=== PATIENT | female | born 1930 ===

== ENCOUNTER 2016-07-15 16:56 | Emergency (ER) | payer MEDICARE ==
[2016-07-15 17:24] VITALS: BP 123/49; PULSE 112; RESP 19; TEMP 98.7; O2SAT 98
[2016-07-15] MEDS ORDERED: Iohexol 240 (50 ml) PO ONE ×2 (17:54→19:40)
--- NOTE | 2016-07-15 17:58 | ED PDOC ---
HPI: Abdomen Time Seen by Provider: 07/15/16 17:55 Chief Complaint (Nursing): Abdominal Pain Chief Complaint (Provider): abdominal pain History Per: Patient (85 y/o female here for evaluation of back pain/abdominal pain since extensive painting of stairs 3 days ago. Patient states she notes lower back pain improving temporarily with advil but has had continued persistent right lower quadrant pain. Denies any fevers/chills. Denies any dysuria/urinary frequency/diarrhea. Has h/o bladder prolapse surgery 2007. Has h/o hysterectomy at same time. ), Other (PMD DR. briseno) Past Medical History Reviewed: Historical Data, Nursing Documentation, Vital Signs Vital Signs: Last Vital Signs Temp 98.7 F 07/15/16 17:16 Pulse 112 H 07/15/16 17:16 Resp 19 07/15/16 17:16 BP 123/49 L 07/15/16 17:16 Pulse Ox 98 07/15/16 19:57 - Medical History PMH: Arthritis, HTN, Parkinson's Disease - Surgical History Surgical History: No Surg Hx - Family History Family History: States: No Known Family Hx - Home Medications Home Medications: Ambulatory Orders Medication Instructions Recorded Amoxicillin 875 mg PO BID #20 tab 03/17/14 - Allergies Allergies/Adverse Reactions: Allergies Allergy/AdvReac Type Severity Reaction Status Date / Time azithromycin Allergy Mild RASH Verified 07/15/16 17:32 Review of Systems ROS Statement: Except As Marked, All Systems Reviewed And Found Negative Physical Exam - Reviewed Nursing Documentation Reviewed: Yes Vital Signs Reviewed: Yes - Physical Exam Appears: Positive for: Well, Non-toxic, No Acute Distress Head Exam: Positive for: ATRAUMATIC, NORMAL INSPECTION, NORMOCEPHALIC Skin: Positive for: Normal Color, Warm, DRY Eye Exam: Positive for: EOMI, Normal appearance, PERRL ENT: Positive for: Normal ENT Inspection Neck: Positive for: Normal, Painless ROM Cardiovascular/Chest: Positive for: Regular Rate, Rhythm Respiratory: Positive for: CNT, Normal Breath Sounds Gastrointestinal/Abdominal: Positive for: Normal Exam, Bowel Sounds, Soft, Tenderness (right lower quadrant tenderness) Back: Positive for: Normal Inspection Extremity: Positive for: Normal ROM Neurologic/Psych: Positive for: Alert, Oriented - Laboratory Results Result Diagrams: 07/15/16 18:16 07/15/16 18:16 - ECG O2 Sat by Pulse Oximetry: 98 - Progress ED Course And Treament: vALIUM 2.5 MG X 1 DOSE PATIENT DOES NOT WANT MORPHINE AT THIS TIME. XRY OF LSPINE: ? DJD NOTED LOWER LUMBAR REGION. NO OBVIOUS FX CT ABDOMEN/PELVIS: PENDING Disposition - Clinical Impression Clinical Impression: Abdominal pain - Patient ED Disposition Is Patient to be Admitted: Transfer of Care - Disposition Disposition: Transfer of Care Disposition Time: 19:42 Condition: FAIR Patient Signed Over To: Walter Burden Handoff Comments: CT ABD/PELVIS AND RE-EVALUATION
[2016-07-15 18:20] LABS: BASO % 0.4 % (0.0-2.0); EOS # 0.1 K/uL (0.0-0.7); EOS % 1.4 % (0.0-4.0); HEMATOCRIT 37.6 % (34.0-47.0); LYMPH # 1.3 K/uL (1.0-4.3); LYMPH % 19.1 % (20.0-40.0); MEAN CELL VOLUME 91.7 fl (81.0-99.0); MEAN CORPUSCULAR HEMOGLOBIN 29.9 pg (27.0-31.0); MEAN CORPUSCULAR HGB CONC 32.6 g/dL (33.0-37.0); MEAN PLATELET VOLUME 8.9 fl (7.2-11.7); MONO # 0.7 K/uL (0.0-0.8); MONO % 10.5 % (0.0-10.0); NEUT # 4.6 K/uL (1.8-7.0); NEUT % 68.6 % (50.0-75.0); RED CELL DISTRIBUTION WIDTH 14.2 % (11.5-14.5); WHITE BLOOD COUNT 6.6 K/uL (4.8-10.8)
[2016-07-15 18:22] LABS: RBC URINE 3 /hpf (0-3); URINE BACTERIA RARE (<OCC); URINE BILIRUBIN NEGATIVE (NEGATIVE); URINE BLOOD NEGATIVE (NEGATIVE); URINE COLOR YELLOW (YELLOW); URINE GLUCOSE (UA) NEG (Normal); URINE KETONE NEGATIVE (NEGATIVE); URINE LEUKOCYTE ESTERASE NEG Leu/uL (Negative); URINE PROTEIN NEGATIVE (NEGATIVE); URINE UROBILINOGEN 0.2-1.0 mg/dL (0.2-1.0); WBC URINE 2 /hpf (0-5)
[2016-07-15 18:32] LABS: ALB/GLOB RATIO 1.5 (1.0-2.1); ALKALINE PHOSPHATASE 110 U/L (38-126); ALT/SGPT 33 U/L (9-52); AST/SGOT 23 U/L (14-36); BILIRUBIN,TOTAL 0.8 mg/dl (0.2-1.3); BLOOD UREA NITROGEN 12 mg/dl (7-17); CALCIUM 9.8 mg/dL (8.4-10.2); CARBON DIOXIDE 28 mmol/L (22-30); CHLORIDE 101 mmol/L (98-107); GFR AFRICAN-AMERICAN > 60; GLUCOSE,RANDOM 128 mg/dL (65-105); LIPASE 120 U/L (23-300); POTASSIUM 4.5 MMOL/L (3.6-5.0); SODIUM 141 mmol/l (132-148); TOTAL PROTEIN 7.8 G/DL (6.3-8.2)
[2016-07-15] MEDS ORDERED: Sodium Chloride 0.9% 500 ML IV STA (19:42)
[2016-07-15] MEDS ORDERED: Sodium Chloride 0.9% 50 ML IV ONE (20:45)
[2016-07-15] MEDS ORDERED: Iohexol 300 100 ML IJ ONE (20:45)
--- NOTE | 2016-07-15 21:20 | ED PDOC ---
- Laboratory Results Result Diagrams: 07/15/16 18:16 07/15/16 18:16 - ECG O2 Sat by Pulse Oximetry: 98 - Progress ED Course And Treament: Signed out to me pending CT results. On initial evaluation, pt. reports pain in R side of lower back has worsened and is now requesting pain meds. Abd soft and non-tender. No CVA tenderness. Morphine 2mg IV, zofran 4mg IV given. CT abd/pelvis: IMPRESSION: 1. Diverticulosis without definite CT evidence of diverticulitis. 2. Kidney lesion, indeterminate. Recommend nonemergent ultrasound or MRI. 3. Cholelithiasis Pt. and son informed of kidney lesion and instructed to f/u with PMD for US or MRI. Pt. ambulating in ED with steady unassisted gait. Reports good relief of pain. Case d/w Dr. Solomon prior to discharge who agrees with disposition. Disposition - Clinical Impression Clinical Impression: Abdominal pain, Back pain - POA Present On Arrival: None - Disposition Disposition: Routine/Home Disposition Time: 22:42 Condition: IMPROVED Prescriptions: Tramadol HCl [Ultram] 50 mg PO BID PRN #10 tablet PRN Reason: Other Instructions: Musculoskeletal Pain (ED) Print Language: VENEZUELAN
--- NOTE | 2016-07-15 21:48 | CT ---
EXAM: CT Abdomen and Pelvis With Intravenous Contrast CLINICAL HISTORY: 85 years old, female; Pain; Abdominal pain; Generalized; Additional info: Rlq abd pain and evaluate lumbar spine for FX TECHNIQUE: Axial computed tomography images of the abdomen and pelvis with intravenous contrast. This CT exam was performed using one or more of the following dose reduction techniques: automated exposure control, adjustment of the mA and/or kV according to patient size, and/or use of iterative reconstruction technique. Coronal and sagittal reformatted images were created and reviewed. CONTRAST: 90 mL of [id number] administered intravenously. COMPARISON: No relevant prior studies available. FINDINGS: Lower thorax: Mild atelectasis/scarring. Small hiatal hernia. ABDOMEN: Liver: Unremarkable. No mass. Gallbladder and bile ducts: Gallstones. No ductal dilation. Pancreas: No mass. Slight prominence of pancreatic duct. Spleen: No splenomegaly. Adrenals: No mass. Kidneys and ureters: 1.3 x 1.1 x 1.1 cm lesion within RIGHT kidney, indeterminate by CT criteria. LEFT renal cyst. Few too small to characterize lesions within kidneys. Small calculus within LEFT kidney. Mild pelvocaliectasis of both kidneys. Stomach and bowel: Duodenal diverticulum. Several diverticula within sigmoid colon. No associated inflammatory stranding. No definite mural thickening. No obstruction. Appendix: No definite findings to suggest acute appendicitis. PELVIS: Bladder: Mild bladder distention. Reproductive: Hysterectomy. ABDOMEN and PELVIS: Intraperitoneal space: No significant fluid collection. No free air. Bones/joints: Scoliosis and degenerative changes of spine. No acute fracture. Soft tissues: Unremarkable. Vasculature: Unremarkable. No abdominal aortic aneurysm. Lymph nodes: No pathologically enlarged lymph nodes. IMPRESSION: 1. Diverticulosis without definite CT evidence of diverticulitis. 2. Kidney lesion, indeterminate. Recommend nonemergent ultrasound or MRI. 3. Cholelithiasis. 4. Incidental/non-acute findings are described above.
--- NOTE | 2016-07-16 08:03 | RAD ---
PROCEDURE: Radiographs of the Lumbar Spine. HISTORY: back pain No antecedent history of trauma provided. COMPARISON: No prior. FINDINGS: BONES: Scoliosis, secondary degenerative change at multiple levels. DISC SPACES: Disc degenerative change, disc space narrowing at virtually every level visualized thoracolumbar spine and lumbosacral junction. OTHER FINDINGS: None. IMPRESSION: No acute findings related to/accounting for the clinical presentation. Degenerative changes as described.
--- NOTE | 2016-07-17 02:17 | CARD ---
APPROVED REPORT EKG Measurement Heart [id number] <Conclusion> Normal sinus rhythm Left axis deviation Voltage criteria for left ventricular hypertrophy Cannot rule out Septal infarct, age undetermined Abnormal ECG
== END 2016-07-15 22:50 | disposition home or self-care (01) ==
LOC: H.ER 16:56
DX: R10.31 Right lower quadrant pain (principal); M54.9 Dorsalgia, unspecified; G20 Parkinson's disease; I10 Essential (primary) hypertension; Z88.0 Allergy status to penicillin; K80.20 Calculus of gallbladder without cholecystitis without obstruction; N28.9 Disorder of kidney and ureter, unspecified
CPT/HCPCS: 72100; 74177; 80053; 81003; 83690; 84484; 85025; 87086; 93005; 96361; 96374; 96375; 99283; J2270; J2405; J7040; Q9966; Q9967

== ENCOUNTER 2016-08-15 22:06 | Emergency (ER) | payer MEDICARE ==
[2016-08-15 22:25] VITALS: RESP 16; O2SAT 98
--- NOTE | 2016-08-16 00:53 | ED PDOC ---
HPI: Female Pain Time Seen by Provider: 08/15/16 22:28 Chief Complaint (Nursing): Female Genitourinary Chief Complaint (Provider): bleeding from genital area History Per: Patient History/Exam Limitations: no limitations Onset/Duration Of Symptoms: Mins Current Symptoms Are (Timing): Gone Now Additional Complaint(s): 85yo female with PMHx including bladder prolapse presents to the ED with c/o bleeding from genital area when she urinates. Patient states when bladder was out she thinks she scratched it with her nails and this caused the bleeding. At present patient reports no pain or bleeding. Denies blood in stool, back pain, fever, urinary problem. Of note, patient has additional complaint of left leg swelling and some pain x 4 days. Urologist: Dr. Soriano PCP: Dr. Dasilva Past Medical History Reviewed: Historical Data, Nursing Documentation, Vital Signs Vital Signs: Last Vital Signs Temp 98.2 F 08/15/16 22:20 Pulse 95 H 08/15/16 22:20 Resp 16 08/15/16 22:20 BP 146/78 08/15/16 22:20 Pulse Ox 98 08/15/16 22:20 - Medical History PMH: Arthritis, HTN, Parkinson's Disease Other PMH: bladder prolapse - Surgical History Other surgeries: pelvic surgery by Dr. White - Family History Family History: States: No Known Family Hx - Home Medications Home Medications: Ambulatory Orders Medication Instructions Recorded Amoxicillin 875 mg PO BID #20 tab 03/17/14 Tramadol HCl [Ultram] 50 mg PO BID PRN #10 tablet 07/15/16 - Allergies Allergies/Adverse Reactions: Allergies Allergy/AdvReac Type Severity Reaction Status Date / Time azithromycin Allergy Mild RASH Verified 07/15/16 17:32 Review of Systems ROS Statement: Except As Marked, All Systems Reviewed And Found Negative Constitutional: Negative for: Fever Gastrointestinal: Positive for: Other (no blood in stool ) Genitourinary Female: Positive for: Other (bleeding from genital area now resolved ). Negative for: Dysuria, Frequency, Incontinence, Hematuria Musculoskeletal: Positive for: Other (left leg swelling w/ pain ). Negative for : Back Pain Physical Exam - Reviewed Nursing Documentation Reviewed: Yes Vital Signs Reviewed: Yes - Physical Exam Appears: Positive for: Well, No Acute Distress Head Exam: Positive for: ATRAUMATIC, NORMAL INSPECTION, NORMOCEPHALIC Skin: Positive for: Normal Color, Warm, Dry Eye Exam: Positive for: Normal appearance, EOMI, PERRL ENT: Positive for: Normal ENT Inspection Neck: Positive for: Normal, Painless ROM, Supple Cardiovascular/Chest: Positive for: Regular Rate, Rhythm. Negative for: Murmur , Tachycardia Respiratory: Positive for: Normal Breath Sounds. Negative for: Wheezing, Respiratory Distress Gastrointestinal/Abdominal: Positive for: Normal Exam, Soft. Negative for: Tenderness Pelvic Exam: Positive for: Other (chaperoned by IN[employer] Onofre, dried blood and mucosal abrasions on bladder that is partially prolapsed, soft, pink, non-tender ). Negative for: Active Bleeding Back: Positive for: Normal Inspection. Negative for: L CVA Tenderness, R CVA Tenderness Extremity: Positive for: Normal ROM, Swelling (LLE), Other (varicose veins to BLE ). Negative for: Deformity Neurologic/Psych: Positive for: Alert, Oriented - ECG O2 Sat by Pulse Oximetry: 98 Pulse Ox Interpretation: Normal (RA) Medical Decision Making Medical Decision Makin: Impression: 1. bleeding from mucosa of prolapsed bladder, now resolved. 2. left leg swelling, r/o DVT Plan: Patient refuses blood work at this time. US duplex LLE reassess Patient s/o to Dr. Guadarrama at 0000 pending US. Scribe Attestation: Documented by Karon Grijalva acting as a scribe for Luis E Solomon MD. Provider Scribe Attestation: All medical record entries made by the Scribe were at my direction and personally dictated by me. I have reviewed the chart and agree that the record accurately reflects my personal performance of the history, physical exam, medical decision making, and the department course for this patient. I have also personally directed, reviewed, and agree with the discharge instructions and disposition. Disposition - Clinical Impression Clinical Impression: Bladder prolapse, Edema leg - Patient ED Disposition Is Patient to be Admitted: Transfer of Care Counseled Patient/Family Regarding: Studies Performed, Diagnosis, Need For Followup - Disposition Disposition: Transfer of Care Disposition Time: 00:00 Condition: STABLE Instructions: Leg Edema (ED) Patient Signed Over To: Silvio Guadarrama Handoff Comments: pending US
--- NOTE | 2016-08-16 01:40 | ED PDOC ---
- ECG O2 Sat by Pulse Oximetry: 98 Medical Decision Making Medical Decision Making: Case endorsed from Dr. Solomon at 0000 pending US and re-eval. 0150: US duplex LLE impression: No acute DVT demonstrated in the left lower extremity. 0214: Patient states she will follow-up with her doctor regarding her chronic bladder prolapse. Patient stable for d/c. Dx: bladder prolapse, edema stable Scribe Attestation: Documented by Karon Grijalva acting as a scribe for Silvio Guadarrama MD. Provider Scribe Attestation: All medical record entries made by the Scribe were at my direction and personally dictated by me. I have reviewed the chart and agree that the record accurately reflects my personal performance of the history, physical exam, medical decision making, and the department course for this patient. I have also personally directed, reviewed, and agree with the discharge instructions and disposition. Disposition - Clinical Impression Clinical Impression: Bladder prolapse, Edema leg - POA Present On Arrival: None - Disposition Disposition: Routine/Home Disposition Time: 02:14 Condition: STABLE Instructions: Leg Edema (ED)
--- NOTE | 2016-08-16 01:50 | US ---
EXAM: US Duplex Left Lower Extremity Veins CLINICAL HISTORY: 85 years old, female; Signs and symptoms; Swelling of limb; Lower extremity, left; Additional info: Leg swelling TECHNIQUE: Real-time ultrasound scan of the veins of the left lower extremity with color Doppler flow, spectral waveform analysis and compression. EXAM DATE/TIME: Exam ordered 08/15/2016 11:42 PM COMPARISON: No relevant prior studies available. FINDINGS: Deep veins: Unremarkable. No DVT in the visualized common femoral, femoral, proximal deep femoral or popliteal veins. The veins are compressible with normal color flow and augmentation. Superficial veins: Unremarkable. No thrombus in the visualized greater saphenous vein. Soft tissues: No acute findings. No popliteal cyst. IMPRESSION: No acute DVT demonstrated in the left lower extremity.
[2016-08-16 02:37] VITALS: BP 133/81; PULSE 82; TEMP 98
== END 2016-08-16 02:12 | disposition home or self-care (01) ==
LOC: H.ER 22:06
DX: R60.0 Localized edema (principal); N81.89 Other female genital prolapse

== ENCOUNTER 2017-06-29 22:15 | Emergency (ER) | payer MEDICARE ==
[2017-06-29 22:54] VITALS: BP 151/64; PULSE 122; RESP 22; TEMP 98.5; O2SAT 99
--- NOTE | 2017-06-29 23:26 | ED PDOC ---
HPI: Abdomen Time Seen by Provider: 06/29/17 23:01 Chief Complaint (Nursing): Abdominal Pain Chief Complaint (Provider): Ecchymosis History Per: Patient History/Exam Limitations: no limitations Onset/Duration Of Symptoms: Hrs (6 hours ago) Current Symptoms Are (Timing): Still Present Additional Complaint(s): 86 yo female with a history of CAD and elevated cholesterol, presents to the ED complaining of ecchymosis towards the left side of her abdomen, onset of roughly 6 hours ago. Patient denies any injury, pain, or other areas with ecchymosis. Of note, patient was admitted to [facility] earlier this week for complaints of chest hurt and had received a subcutaneous lovenox injection on her abdomen. Past Medical History Reviewed: Historical Data, Nursing Documentation, Vital Signs Vital Signs: Last Vital Signs Temp 98.5 F 06/29/17 22:48 Pulse 122 H 06/29/17 22:48 Resp 22 06/29/17 22:48 BP 151/64 H 06/29/17 22:48 Pulse Ox 99 06/29/17 23:40 - Medical History PMH: Anxiety, Arthritis, CAD, HTN, Parkinson's Disease Denies: Chronic Kidney Disease - Surgical History Other surgeries: bilateral knee replacement, bladder and shoulder surgeries - Family History Family History: States: Unknown Family Hx - Social History Current smoker - smoking cessation education provided: No Ex-Smoker (has not smoked in the last 12 months): No Alcohol: None - Home Medications Home Medications: Ambulatory Orders Medication Instructions Recorded Tramadol HCl [Ultram] 50 mg PO BID PRN #10 tablet 07/15/16 Cilostazol [Pletal] 100 mg PO BID 06/25/17 Furosemide [Lasix] 20 mg PO DAILY 06/25/17 Glimepiride [Amaryl] 1 mg PO DAILY 06/25/17 Lorazepam [Ativan] 0.5 mg PO BID 06/25/17 Nitroglycerin 0.2 mg/hr [Nitro-Dur 0.2 mg TD 06/25/17 0.2 mg/hr Patch] Pramipexole Di-HCl [Mirapex] 0.125 mg PO BID 06/25/17 Propranolol [Inderal] 20 mg PO BID 06/25/17 Rosuvastatin Calcium [Crestor] 5 mg PO HS #30 tab 06/26/17 - Allergies Allergies/Adverse Reactions: Allergies Allergy/AdvReac Type Severity Reaction Status Date / Time azithromycin Allergy Mild RASH Verified 06/25/17 04:12 Review of Systems ROS Statement: Except As Marked, All Systems Reviewed And Found Negative Cardiovascular: Positive for: Chest Pain (reported earlier this week) Skin: Positive for: Bruising Physical Exam - Reviewed Nursing Documentation Reviewed: Yes Vital Signs Reviewed: Yes - Physical Exam Appears: Positive for: Well, Non-toxic, No Acute Distress Head Exam: Positive for: ATRAUMATIC, NORMAL INSPECTION, NORMOCEPHALIC Skin: Positive for: Warm. Negative for: Normal Color (3cm by 5cm ecchymotic area on left lower quadrant of the abdomen, flat, no tenderness, no active bleeding, no other areas of ecchymosis and no petechiae ) Eye Exam: Positive for: EOMI, Normal appearance, PERRL ENT: Positive for: Normal ENT Inspection Neck: Positive for: Normal, Painless ROM Cardiovascular/Chest: Positive for: Regular Rate, Rhythm. Negative for: Murmur Respiratory: Positive for: Normal Breath Sounds. Negative for: Respiratory Distress Gastrointestinal/Abdominal: Positive for: Normal Exam, Soft. Negative for: Tenderness, Mass Back: Positive for: Normal Inspection Extremity: Positive for: Normal ROM. Negative for: Pedal Edema, Deformity Neurologic/Psych: Positive for: Alert, Oriented. Negative for: Motor/Sensory Deficits - Laboratory Results Result Diagrams: 06/29/17 23:30 06/29/17 23:30 - ECG O2 Sat by Pulse Oximetry: 99 Pulse Ox Interpretation: Normal Medical Decision Making Medical Decision Making: Time: --23:30 Impression: --Ecchymosis most likely form subcutaneous lovenox injections from [facility] Plan: --Labs --PT/INR Reassess -- Scribe Attestation: Documented by Doug Toledo acting as a scribe for Patel Vergara MD. Provider Attestation: All medical record entries made by the Scribe were at my direction and personally dictated by me. I have reviewed the chart and agree that the record accurately reflects my personal performance of the history, physical exam, medical decision making, and the department course for this patient. I have also personally directed, reviewed, and agree with the discharge instructions and disposition. Disposition - Clinical Impression Clinical Impression: Hematoma - Patient ED Disposition Is Patient to be Admitted: No Counseled Patient/Family Regarding: Studies Performed, Diagnosis, Need For Followup, Rx Given - Disposition Referrals: Bud Dasilva MD [Staff Provider] - Disposition: Routine/Home Disposition Time: 00:08 Condition: FAIR Instructions: Contusion (DC) Forms: [employer] (Afghan)
[2017-06-29 23:53] LABS: BASO % 0.6 % (0.0-2.0); EOS # 0.1 K/uL (0.0-0.7); EOS % 3.6 % (0.0-4.0); HEMOGLOBIN 11.2 g/dL (12.0-16.0); LYMPH # 1.6 K/uL (1.0-4.3); LYMPH % 39.8 % (20.0-40.0); MEAN CELL VOLUME 91.9 fl (81.0-99.0); MEAN CORPUSCULAR HEMOGLOBIN 30.2 pg (27.0-31.0); MEAN CORPUSCULAR HGB CONC 32.8 g/dL (33.0-37.0); MEAN PLATELET VOLUME 9.1 fl (7.2-11.7); MONO # 0.3 K/uL (0.0-0.8); MONO % 7.9 % (0.0-10.0); NEUT # 1.9 K/uL (1.8-7.0); NEUT % 48.1 % (50.0-75.0); NRBC % 0.2 % (0.0-0.0); RBC 3.71 Mil/uL (3.80-5.20); RED CELL DISTRIBUTION WIDTH 14.1 % (11.5-14.5)
[2017-06-29 23:58] LABS: ALB/GLOB RATIO 1.5 (1.0-2.1); ALBUMIN 4.1 g/dL (3.5-5.0); ALT/SGPT 35 U/L (9-52); AST/SGOT 33 U/L (14-36); BLOOD UREA NITROGEN 14 mg/dl (7-17); CALCIUM 9.5 mg/dL (8.4-10.2); GFR AFRICAN-AMERICAN > 60; GFR NON-AFRICAN AMERICAN > 60
[2017-06-30] LABS: PROTHROMBIN TIME 10.8 Seconds (9.8-13.1)
== END 2017-06-30 00:55 | disposition home or self-care (01) ==
LOC: H.ER 22:15
DX: R23.3 Spontaneous ecchymoses (principal); F41.9 Anxiety disorder, unspecified; G20 Parkinson's disease; I10 Essential (primary) hypertension; I25.10 Atherosclerotic heart disease of native coronary artery without angina pectoris; Z79.84 Long term (current) use of oral hypoglycemic drugs; Z87.891 Personal history of nicotine dependence; Z96.653 Presence of artificial knee joint, bilateral

== ENCOUNTER 2017-10-16 17:13 | Emergency (ER) | payer MEDICARE ==
[2017-10-16 17:17] VITALS: RESP 16
--- NOTE | 2017-10-16 18:39 | ED PDOC ---
Syncope/Near Syncope/Dizziness Time Seen by Provider: 10/16/17 17:39 Chief Complaint (Nursing): Weakness/Neurological Deficit Chief Complaint (Provider): weakness, dizziness History Per: Patient History/Exam Limitations: no limitations Onset/Duration Of Symptoms: Days (x2) Additional Complaint(s): Marla Marlow, an 87 year old female with past medical history of CAD and hypercholesterolemia, presents to the emergency department with weakness and dizziness onset 2 days ago. Patient reports that she went to [facility] yesterday where she was evaluated and advised to go to the ED. She refused and went home. She states that her symptoms worsened today which prompted her ED visit. Patient denies chest pain, shortness of breath, abdominal pain, nausea or vomiting. No further medical complaints. PMD:Royer Krishnamurthy Past Medical History Reviewed: Historical Data, Nursing Documentation, Vital Signs Vital Signs: Last Vital Signs Temp 97.9 F 10/16/17 17:16 Pulse 87 10/16/17 17:16 Resp 16 10/16/17 17:16 BP 112/64 10/16/17 17:16 Pulse Ox 98 10/16/17 17:16 - Medical History PMH: Anxiety, Arthritis, CAD, HTN, Hypercholesterolemia, Parkinson's Disease Denies: Chronic Kidney Disease - Surgical History Surgical History: No Surg Hx - Family History Family History: States: Unknown Family Hx - Home Medications Home Medications: Ambulatory Orders Medication Instructions Recorded Cilostazol [Pletal] 100 mg PO Q12 06/25/17 Furosemide [Lasix] 20 mg PO DAILY 06/25/17 Glimepiride [Amaryl] 1 mg PO DAILY 06/25/17 Lorazepam [Ativan] 0.5 mg PO Q12 06/25/17 Nitroglycerin 0.2 mg/hr [Nitro-Dur 0.2 mg TD DAILY 06/25/17 0.2 mg/hr Patch] Propranolol [Inderal] 20 mg PO Q12 06/25/17 Aspirin [Ecotrin] 81 mg PO DAILY 10/16/17 Pramipexole Di-HCl [Mirapex] 0.25 mg PO Q8 10/16/17 Ranitidine HCl [Zantac] 300 mg PO HS 10/16/17 - Allergies Allergies/Adverse Reactions: Allergies Allergy/AdvReac Type Severity Reaction Status Date / Time azithromycin Allergy Mild RASH Verified 10/16/17 17:16 Review of Systems ROS Statement: Except As Marked, All Systems Reviewed And Found Negative Constitutional: Positive for: Weakness Cardiovascular: Negative for: Chest Pain Respiratory: Negative for: Shortness of Breath Gastrointestinal: Negative for: Nausea, Vomiting, Abdominal Pain Neurological: Positive for: Dizziness Physical Exam - Reviewed Nursing Documentation Reviewed: Yes Vital Signs Reviewed: Yes - Physical Exam Appears: Positive for: Non-toxic, No Acute Distress Head Exam: Positive for: ATRAUMATIC, NORMAL INSPECTION, NORMOCEPHALIC Skin: Positive for: Normal Color, Warm, Dry Eye Exam: Positive for: Normal appearance, EOMI, PERRL Neck: Positive for: Normal, Painless ROM Cardiovascular/Chest: Positive for: Regular Rate, Rhythm Respiratory: Positive for: Normal Breath Sounds. Negative for: Respiratory Distress Gastrointestinal/Abdominal: Positive for: Normal Exam, Soft. Negative for: Tenderness Back: Positive for: Normal Inspection Extremity: Positive for: Normal ROM (upper and lower extremities). Negative for : Deformity Neurologic/Psych: Positive for: Alert, Oriented. Negative for: Motor/Sensory Deficits - Laboratory Results Result Diagrams: 10/16/17 18:55 10/16/17 18:55 - ECG O2 Sat by Pulse Oximetry: 98 (RA) Pulse Ox Interpretation: Normal Medical Decision Making Medical Decision Making: Time: 17:39 Initial Impression:weakness and dizziness Initial Plan: --CT head w/o contrast --EKG --CMP --Drug screen --Troponin --CBC w/differential --Partial thromboplastin time --Prothrombin time --Chest xray 1 view --Blood culture --Urine culture -EKG was reviewed and cleared by showed normal sinus @ 74 bpm with first degree av block Time: 19:[address]: FINDINGS: HEMORRHAGE: No intracranial hemorrhage. BRAIN: No mass effect or edema. Moderate atrophy is again noted. Moderate to extensive white matter changes are again noted suggestive of chronic microvascular ischemic disease. VENTRICLES: Unremarkable. No hydrocephalus. CALVARIUM: Unremarkable. PARANASAL SINUSES: Unremarkable as visualized. No significant inflammatory changes. MASTOID AIR CELLS: Unremarkable as visualized. No inflammatory changes. OTHER FINDINGS: None. IMPRESSION: No evidence of acute intracranial hemorrhage intracranial collection mass effect or midline shift. 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 Observation offered, Pt declined. Reports that she feels better after everything was negative. Scribe Attestation: Documented by Angelic Barksdale, acting as a scribe for BLAZE Fregoso. Provider Scribe Attestation: All medical record entries made by the Scribe were at my direction and personally dictated by me. I have reviewed the chart and agree that the record accurately reflects my personal performance of the history, physical exam, medical decision making, and the department course for this patient. I have also personally directed, reviewed, and agree with the discharge instructions and disposition. Disposition - Clinical Impression Clinical Impression: Episode of generalized weakness, Anxiety - Disposition Condition: STABLE Instructions: Weakness (ED), Anxiety, Adult (DC) Forms: [employer] (Ukrainian)
--- NOTE | 2017-10-16 19:03 | CT ---
Date of service: 10/16/2017 PROCEDURE: CT HEAD WITHOUT CONTRAST. HISTORY: dizzy COMPARISON: None available. TECHNIQUE: Axial computed tomography images were obtained through the head/brain without intravenous contrast. Radiation dose: Total exam DLP = 706.01 mGy-cm. This CT exam was performed using one or more of the following dose reduction techniques: Automated exposure control, adjustment of the mA and/or kV according to patient size, and/or use of iterative reconstruction technique. FINDINGS: HEMORRHAGE: No intracranial hemorrhage. BRAIN: No mass effect or edema. Moderate atrophy is again noted. Moderate to extensive white matter changes are again noted suggestive of chronic microvascular ischemic disease. VENTRICLES: Unremarkable. No hydrocephalus. CALVARIUM: Unremarkable. PARANASAL SINUSES: Unremarkable as visualized. No significant inflammatory changes. MASTOID AIR CELLS: Unremarkable as visualized. No inflammatory changes. OTHER FINDINGS: None. IMPRESSION: No evidence of acute intracranial hemorrhage intracranial collection mass effect or midline shift. 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 .
[2017-10-16 19:17] LABS: BASO % 0.2 % (0.0-2.0); EOS # 0.1 K/uL (0.0-0.7); HEMOGLOBIN 10.1 g/dL (12.0-16.0); LYMPH # 0.7 K/uL (1.0-4.3); MEAN CELL VOLUME 91.7 fl (81.0-99.0); MEAN CORPUSCULAR HEMOGLOBIN 30.5 pg (27.0-31.0); MEAN CORPUSCULAR HGB CONC 33.2 g/dL (33.0-37.0); MEAN PLATELET VOLUME 9.1 fl (7.2-11.7); MONO # 0.2 K/uL (0.0-0.8); MONO % 5.3 % (0.0-10.0); NEUT # 3.1 K/uL (1.8-7.0); NEUT % 74.5 % (50.0-75.0); RBC 3.32 Mil/uL (3.80-5.20); RED CELL DISTRIBUTION WIDTH 14.5 % (11.5-14.5); WHITE BLOOD COUNT 4.1 K/uL (4.8-10.8)
[2017-10-16 19:23] LABS: PROTHROMBIN TIME 11.5 Seconds (9.8-13.1)
[2017-10-16 19:26] VITALS: PULSE 76
[2017-10-16 19:26] LABS: PARTIAL THROMBOPLASTIN TIME 29.1 Seconds (25.6-37.1)
[2017-10-16 19:29] LABS: ALB/GLOB RATIO 1.5 (1.0-2.1); ALBUMIN 3.8 g/dL (3.5-5.0); ALT/SGPT 33 U/L (9-52); AST/SGOT 28 U/L (14-36); BLOOD UREA NITROGEN 16 mg/dl (7-17); CALCIUM 9.2 mg/dL (8.4-10.2); GFR AFRICAN-AMERICAN > 60; GFR NON-AFRICAN AMERICAN > 60
[2017-10-16 20:44] VITALS: BP 110/76; TEMP 98.1; O2SAT 97
--- NOTE | 2017-10-17 07:39 | CARD ---
APPROVED REPORT Date of service: 10/16/2017 <Conclusion> Sinus rhythm with 1st degree AV block Left axis deviation Voltage criteria for left ventricular hypertrophy Cannot rule out Septal infarct, age undetermined Abnormal ECG
--- NOTE | 2017-10-17 08:35 | RAD ---
Date of service: 10/16/2017 PROCEDURE: CHEST RADIOGRAPH, 1 VIEW HISTORY: Weakness COMPARISON: CT chest without contrast from 10/11/2014 FINDINGS: LUNGS: The lungs are well inflated. There is bibasilar atelectasis/ scarring. No focal consolidation. PLEURA: No pneumothorax or pleural fluid seen. CARDIOVASCULAR: The heart is normal in size. Atherosclerotic aortic arch calcifications are present. OSSEOUS STRUCTURES: No significant abnormalities. VISUALIZED UPPER ABDOMEN: Normal. OTHER FINDINGS: None. IMPRESSION: No active pulmonary disease.
== END 2017-10-16 20:44 | disposition home or self-care (01) ==
LOC: H.ER 17:13
DX: M62.81 Muscle weakness (generalized) (principal); F41.9 Anxiety disorder, unspecified; E78.00 Pure hypercholesterolemia, unspecified; G20 Parkinson's disease; Z79.84 Long term (current) use of oral hypoglycemic drugs; I10 Essential (primary) hypertension

== ENCOUNTER 2018-02-20 13:14 | Emergency (ER) | payer MEDICARE ==
--- NOTE | 2018-02-20 14:02 | ED PDOC ---
Lower Extremity Pain/Injury Time Seen by Provider: 02/20/18 13:33 Chief Complaint (Nursing): Chest Pain Chief Complaint (Provider): Chest Pain History Per: Patient History/Exam Limitations: no limitations Onset/Duration Of Symptoms: Sudden Onset Current Symptoms Are (Timing): Still Present Additional Complaint(s): 87 year old female with pmHx of HTN, CAD, angina, and anxiety, arrives to ED for a sudden onset of chest pain with shortness of breath prior to arrival. Patient states she was walking to [facility] for an evaluation of left lower leg pain with swelling when she began having difficulty breathing. She reports symptoms feel similar to previous angina. Otherwise, she denies any falls or trauma and has taken Aleve with minimal relief. Of note, patient reports daily use of baby Aspirin but no other coagulants. PCP: Dr. Dain Baker Cardio: Dr. Bud Dasilva Past Medical History Reviewed: Historical Data, Nursing Documentation, Vital Signs Vital Signs: Last Vital Signs Temp 98.2 F 02/20/18 13:21 Pulse 86 02/20/18 13:21 Resp 22 02/20/18 13:21 BP 104/62 02/20/18 13:21 Pulse Ox 97 02/20/18 13:21 - Medical History PMH: Anxiety, Arthritis, CAD, HTN, Hypercholesterolemia, Parkinson's Disease Denies: Chronic Kidney Disease - Family History Family History: States: Unknown Family Hx - Home Medications Home Medications: Ambulatory Orders Medication Instructions Recorded RX: Cilostazol [Pletal] 100 mg PO Q12 06/25/17 RX: Furosemide [Lasix] 20 mg PO DAILY 06/25/17 RX: Glimepiride [Amaryl] 1 mg PO DAILY 06/25/17 RX: Lorazepam [Ativan] 0.5 mg PO Q12 06/25/17 RX: Nitroglycerin 0.2 mg/hr 0.2 mg TD DAILY 06/25/17 [Nitro-Dur 0.2 mg/hr Patch] RX: Propranolol [Inderal] 20 mg PO Q12 06/25/17 Pramipexole Di-HCl [Mirapex] 0.25 mg PO Q8 10/16/17 RX: Aspirin [Ecotrin] 81 mg PO DAILY 10/16/17 Ranitidine HCl [Zantac] 300 mg PO HS 10/16/17 - Allergies Allergies/Adverse Reactions: Allergies Allergy/AdvReac Type Severity Reaction Status Date / Time azithromycin Allergy Mild RASH Verified 10/16/17 17:16 Review of Systems ROS Statement: Except As Marked, All Systems Reviewed And Found Negative Cardiovascular: Positive for: Chest Pain Respiratory: Positive for: Shortness of Breath Musculoskeletal: Positive for: Leg Pain (lower left with swelling) Physical Exam - Reviewed Nursing Documentation Reviewed: Yes Vital Signs Reviewed: Yes - Physical Exam Appears: Positive for: Well (but elderly), No Acute Distress Head Exam: Positive for: ATRAUMATIC, NORMAL INSPECTION, NORMOCEPHALIC Skin: Positive for: Normal Color. Negative for: Pallor, Cyanosis Eye Exam: Positive for: Normal appearance, EOMI, PERRL ENT: Positive for: Normal ENT Inspection Neck: Positive for: Normal Cardiovascular/Chest: Positive for: Regular Rate, Rhythm, Chest Non Tender Respiratory: Positive for: Decreased Breath Sounds. Negative for: Respiratory Distress Extremity: Positive for: Tenderness (left knee to tibia/fibula), Pedal Edema (2+ pitting left > right leg; bounding dorsalis pedis pulse), Capillary Refill (< 5 seconds to left lower leg). 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 Negative for: Motor/Sensory Deficits, Aphasia - Laboratory Results Result Diagrams: 02/20/18 14:22 02/20/18 14:22 - ECG O2 Sat by Pulse Oximetry: 97 (RA) Pulse Ox Interpretation: Normal Medical Decision Making Medical Decision Making: Time: 1333 Initial Plan: * Labs * CXR * XR knee (left) * XR ankle (left) * XR tibia/fibula * Toradol 15mg IVP * Accucheck * US duplex LE artery & vein (left) Scribe Attestation: Documented by Sharon Oliva, acting as a scribe for Sung Rhodes III, DO. Provider Scribe Attestation: All medical record entries made by the Scribe were at my direction and personally dictated by me. I have reviewed the chart and agree that the record accurately reflects my personal performance of the history, physical exam, medical decision making, and the department course for this patient. I have also personally directed, reviewed, and agree with the discharge instructions and disposition. Disposition - Clinical Impression Clinical Impression: Anemia, Leg pain - Patient ED Disposition Is Patient to be Admitted: Transfer of Care - Disposition Disposition: Transfer of Care Disposition Time: 15:00 Condition: IMPROVED Additional Instructions: follow up with Dr Dasilva/Dr Busby in 1-2 days for reevaluation return to the ED with any worsening or concerning symptoms Instructions: Chronic Knee Pain (DC), Lower Extremity Muscle Strain (DC) Forms: [email or web address] (Romanian) Patient Signed Over To: Dameon Olivares Handoff Comments: pending US report, XRays and labs/ dispo, d/w Dr Dasilva
[2018-02-20 14:32] LABS: HEMOGLOBIN 10.7 g/dL (12.0-16.0); MEAN CELL VOLUME 93.3 fl (81.0-99.0); MEAN CORPUSCULAR HEMOGLOBIN 30.4 pg (27.0-31.0); MEAN CORPUSCULAR HGB CONC 32.6 g/dL (33.0-37.0); RBC 3.52 Mil/uL (3.80-5.20); RED CELL DISTRIBUTION WIDTH 13.9 % (11.5-14.5); WHITE BLOOD COUNT 4.2 K/uL (4.8-10.8)
[2018-02-20 14:33] LABS: BASO % 0.6 % (0.0-2.0); EOS # 0.1 K/uL (0.0-0.7); LYMPH # 1.1 K/uL (1.0-4.3); LYMPH % 27.4 % (20.0-40.0); MEAN PLATELET VOLUME 9.2 fl (7.2-11.7); MONO # 0.3 K/uL (0.0-0.8); MONO % 8.2 % (0.0-10.0); NEUT # 2.5 K/uL (1.8-7.0); NEUT % 60.8 % (50.0-75.0)
[2018-02-20 14:36] LABS: SQUAMOUS EPITHIAL < 1 /hpf (0-5); URINE BILIRUBIN NEGATIVE (NEGATIVE); URINE BLOOD NEGATIVE (NEGATIVE); URINE CLARITY CLEAR (Clear); URINE COLOR YELLOW (YELLOW); URINE GLUCOSE (UA) NEG (NEGATIVE); URINE LEUKOCYTE ESTERASE NEG Leu/uL (Negative); URINE PROTEIN NEGATIVE (NEGATIVE); URINE UROBILINOGEN 0.2-1.0 mg/dL (0.2-1.0)
[2018-02-20 14:40] LABS: ALB/GLOB RATIO 1.5 (1.0-2.1); ALT/SGPT 31 U/L (9-52); AST/SGOT 29 U/L (14-36); BLOOD UREA NITROGEN 12 mg/dl (7-17); CALCIUM 9.1 mg/dL (8.4-10.2); GFR NON-AFRICAN AMERICAN > 60
[2018-02-20 14:42] LABS: PROTHROMBIN TIME 11.4 Seconds (9.8-13.1)
[2018-02-20 14:45] LABS: PARTIAL THROMBOPLASTIN TIME 28.5 Seconds (25.6-37.1)
[2018-02-20 14:50] LABS: B-TYPE NATRIURETIC PEPTIDE 525 pg/ml (0-900)
--- NOTE | 2018-02-20 14:53 | US ---
PROCEDURE: Left lower extremity venous US HISTORY: Leg pain and swelling. Evaluate for DVT. PHYSICIAN(S): Darren Hoyos MD. TECHNIQUE: Duplex sonography and color-flow Doppler with graded compression were used to evaluate the deep venous system of the left lower extremity. FINDINGS: The visualized deep venous system of the left lower extremity is sonographically normal and compressible. Normal wave forms and augmentation are seen. There is no sonographic evidence for deep venous thrombosis in the visualized segments of the left lower extremity. IMPRESSION: 1. No sonographic evidence for deep venous thrombosis in the visualized segments of the left lower extremity.
--- NOTE | 2018-02-20 15:28 | ED PDOC ---
- Laboratory Results Result Diagrams: 02/20/18 14:22 02/20/18 14:22 - ECG O2 Sat by Pulse Oximetry: 97 (RA) Medical Decision Making Medical Decision Making: Time: 1500 --Patient endorsed to provider pending US/XR results and re-evaluation. If findings are negative, case will be discussed with Dr. Dasilva for final disposition. Venous US of left LE: (-) DVT, thus far. Time: 1630 --CXR FINDINGS: LUNGS: The lungs are well inflated and clear. There is linear scarring in the left lung base. PLEURA: No pneumothorax or pleural effusion. CARDIOVASCULAR: The heart is normal in size. There are aortic atherosclerotic calcifications present. OSSEOUS STRUCTURES: Within normal limits for the patient's age. Again seen is an anchor screw in the left humeral head. VISUALIZED UPPER ABDOMEN: Normal. OTHER FINDINGS: None. IMPRESSION: No active pulmonary disease. Time: 1632 --XR left tibia/fibula FINDINGS: BONES: No acute fracture. Status post left knee hemiarthroplasty. JOINT SPACES: Unremarkable. OTHER FINDINGS: None. IMPRESSION: No acute fracture. Time: 1635 --XR left knee FINDINGS: BONES: Irregularity of the contour of the lateral tibial plateau. Cannot rule out acute fracture. Consider further plain radiographic evaluation. JOINTS: Medial hemiarthroplasty. JOINT EFFUSION: None. OTHER FINDINGS: None. IMPRESSION: Irregular contour of lateral tibial plateau. Possible lateral tibial plateau depressed fracture. Recommend additional plain radiographic evaluation. Time: 1635 --XR left ankle FINDINGS: BONES: There is diffuse bone demineralization. There is an intramedullary lucency in the lateral malleolus. No definite cortical break is identified. There is a small plantar calcaneal spur. Bone alignment is normal. JOINTS: Ankle mortise maintained. Talar dome intact SOFT TISSUES: Severe periarticular soft tissue swelling. OTHER FINDINGS: None. IMPRESSION: Intramedullary lucency in the lateral malleolus is nonspecific however could r epresent a nondisplaced fracture in the appropriate clinical setting. Please correlate with point tenderness and if clinically indicated correlation with CT scan or MRI may be performed. Severe periarticular soft tissue swelling. 18:43 Duplex US of left LE- Arterial IMPRESSION: Monophasic waveforms are seen in the left AGILE TEST LEAD and left DP. --Negative for DVT 20:33 CT Left Knee FINDINGS: BONES: No fracture. JOINTS: Status post replacement of the medial and patellofemoral compartments of the left knee. SOFT TISSUES: Diffuse vascular calcifications are seen. IMPRESSION: 1. Status post replacement of the medial and patellofemoral compartments of the left knee. 2. No fracture. 3. Diffuse vascular calcifications are seen. CT Tibia Fibula FINDINGS: BONES: No fracture. JOINTS: Status post replacement of the medial and patellofemoral compartments of the left knee. SOFT TISSUES: Diffuse vascular calcifications are seen. Mild subcutaneous swelling at the level of calf and ankle. IMPRESSION: 1. Status post replacement of the medial and patellofemoral compartments of the left knee. 2. No fracture. 3. Diffuse vascular calcifications are seen. 4. Mild subcutaneous swelling at the level of calf and ankle. 21;47 reevaluated pt several times with son at bedside. pt without chest or leg pain. no sob. --Discussed case with PMD, Dr. Darryl Dasilva. he said he will folow up with pt as outp t. --Patient and family are aware of imaging and of anemia. Stable for discharge. ambulating w stead gait. dc home with family. Scribe Attestation: Documented by Sharon Oliva, acting as a scribe for Dameon Olivares MD. Provider Scribe Attestation: All medical record entries made by the Scribe were at my direction and personally dictated by me. I have reviewed the chart and agree that the record accurately reflects my personal performance of the history, physical exam, medical decision making, and the department course for this patient. I have also personally directed, reviewed, and agree with the discharge instructions and disposition. Disposition Counseled Patient/Family Regarding: Studies Performed, Diagnosis, Need For Followup - Clinical Impression Clinical Impression: Anemia, Leg pain - POA Present On Arrival: None - Disposition Disposition: Routine/Home Disposition Time: 21:50 Condition: IMPROVED Additional Instructions: follow up with Dr Dasilva/Dr Busby in 1-2 days for reevaluation return to the ED with any worsening or concerning symptoms Instructions: Chronic Knee Pain (DC), Lower Extremity Muscle Strain (DC) Forms: [employer] [facility] (Macanese)
--- NOTE | 2018-02-20 16:34 | RAD ---
Date of service: 02/20/2018 PROCEDURE: CHEST RADIOGRAPH, 1 VIEW HISTORY: SOB and chest pain COMPARISON: 10/16/2017. FINDINGS: LUNGS: The lungs are well inflated and clear. There is linear scarring in the left lung base. PLEURA: No pneumothorax or pleural effusion. CARDIOVASCULAR: The heart is normal in size. There are aortic atherosclerotic calcifications present. OSSEOUS STRUCTURES: Within normal limits for the patient's age. Again seen is an anchor screw in the left humeral head. VISUALIZED UPPER ABDOMEN: Normal. OTHER FINDINGS: None. IMPRESSION: No active pulmonary disease.
--- NOTE | 2018-02-20 16:36 | RAD ---
Date of service: 02/20/2018 PROCEDURE: Radiographs of the left tibia and fibula. HISTORY: L leg pain COMPARISON: None available. TECHNIQUE: Frontal and lateral views obtained. FINDINGS: BONES: No acute fracture. Status post left knee hemiarthroplasty. JOINT SPACES: Unremarkable. OTHER FINDINGS: None. IMPRESSION: No acute fracture.
--- NOTE | 2018-02-20 16:38 | RAD ---
Date of service: 02/20/2018 PROCEDURE: Left Ankle Radiographs. HISTORY: L ankle pain COMPARISON: None available. FINDINGS: BONES: There is diffuse bone demineralization. There is an intramedullary lucency in the lateral malleolus. No definite cortical break is identified. There is a small plantar calcaneal spur. Bone alignment is normal. JOINTS: Ankle mortise maintained. Talar dome intact SOFT TISSUES: Severe periarticular soft tissue swelling. OTHER FINDINGS: None. IMPRESSION: Intramedullary lucency in the lateral malleolus is nonspecific however could represent a nondisplaced fracture in the appropriate clinical setting. Please correlate with point tenderness and if clinically indicated correlation with CT scan or MRI may be performed. Severe periarticular soft tissue swelling.
--- NOTE | 2018-02-20 16:39 | RAD ---
Date of service: 02/20/2018 PROCEDURE: Left Knee Radiographs. HISTORY: Pain. COMPARISON: None. FINDINGS: BONES: Irregularity of the contour of the lateral tibial plateau. Cannot rule out acute fracture. Consider further plain radiographic evaluation. JOINTS: Medial hemiarthroplasty. JOINT EFFUSION: None. OTHER FINDINGS: None. IMPRESSION: Irregular contour of lateral tibial plateau. Possible lateral tibial plateau depressed fracture. Recommend additional plain radiographic evaluation.
[2018-02-20 18:11] VITALS: RESP 18
[2018-02-20 22:46] VITALS: BP 120/63; PULSE 70; TEMP 97.6
[2018-02-20 22:59] VITALS: O2SAT 97
--- NOTE | 2018-02-21 13:13 | CT ---
Date of service: 02/20/2018 PROCEDURE: CT of the left lower extremity without contrast HISTORY: possible fracture COMPARISON: No prior similar study available for comparison TECHNIQUE: Axial and reformatted coronal and sagittal CT images of the left lower extremity were obtained without IV contrast administration. FINDINGS: No evidence of acute displaced fracture. The patient is status post replacement of the medial and patellofemoral compartment of the left knee. No evidence of dislocation in the left knee and left ankle. No evidence of hematoma or fluid collection. Diffuse vascular calcification is noted. Subcutaneous edema is noted at the lateral aspect of the left ankle. IMPRESSION: No evidence of acute fracture or dislocation. Additional findings as discussed above. Preliminary report was submitted by [facility] contains concordant findings.
--- NOTE | 2018-02-21 14:46 | CT ---
Date of service: 02/20/2018 PROCEDURE: CT left knee HISTORY: possible fracture COMPARISON: Not available TECHNIQUE: 2.5 mm contiguous axial sections were acquired through the left knee. Sagittal and coronal images were reformatted from the axial scan. FINDINGS: There is no acute fracture. The patient is status post medial hemiarthroplasty with arthroplasty of the patellofemoral articulation as well. The nondalton lateral compartment articulation is preserved. There is no articular erosion. There is no joint effusion. There is no lytic or blastic osseous lesion. The prosthesis is grossly intact. IMPRESSION: No acute fracture. Status post hemiarthroplasty. The preliminary findings for this examination were reported by [facility] at 8:33 p.m. on 02/20/2018. There is concurrence of this report with the preliminary findings.
--- NOTE | 2018-02-21 15:12 | CARD ---
APPROVED REPORT Date of service: 02/20/2018 EKG Measurement Heart [id number] <Conclusion> Sinus rhythm with 1st degree AV block Left anterior fascicular block Voltage criteria for left ventricular hypertrophy Cannot rule out Septal infarct, age undetermined Abnormal ECG
--- NOTE | 2018-02-23 12:48 | US ---
Date of service: 02/20/2018 PROCEDURE: Duplex ultrasound of the left lower extremity arteries. HISTORY: LLE pain COMPARISON: None available. TECHNIQUE: Grayscale and duplex Doppler evaluation of the left common femoral, superficial femoral, popliteal, posterior tibial and dorsalis pedis arteries was performed.. FINDINGS: COMMON FEMORAL ARTERY: Patent. Maximal flow velocity of 112.9 cm/s. SUPERFICIAL FEMORAL ARTERY:Patent. Maximal flow velocity of 104.8 cm/s. POPLITEAL ARTERY:Patent. Maximal flow velocity of 126.0 cm/s. POSTERIOR TIBIAL ARTERY: Patent. Maximal flow velocity of 19.7 cm/s. DORSALIS PEDIS ARTERY: Patent. Maximal flow velocity of 29.6 cm/s. OTHER FINDINGS: None. IMPRESSION: Diffuse atherosclerotic disease identified primarily in common and superficial femoral arteries. No evidence of occlusive disease or critical stenosis. Concordant findings (preliminary report) provided by [facility].
== END 2018-02-20 22:00 | disposition home or self-care (01) ==
LOC: H.ER 13:14
DX: D64.9 Anemia, unspecified (principal); M25.562 Pain in left knee; G20 Parkinson's disease; I11.9 Hypertensive heart disease without heart failure; Z79.82 Long term (current) use of aspirin; E78.00 Pure hypercholesterolemia, unspecified
CPT/HCPCS: 71045; 73562; 73590; 73610; 73700; 80053; 81003; 83735; 83880; 84100; 84484; 85025; 85610; 85730; 93005; 93926; 93971; 96374; 99284; J1885

== ENCOUNTER 2018-05-17 17:55 | Observation (INO) | payer MEDICARE ==
--- NOTE | 2018-05-17 18:32 | ED PDOC ---
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 Pt was administered ASA via EMS. Pt is to be scheduled for aortic valve replacement secondary to aortic stenosis surgery. Past Medical History Reviewed: Nursing Documentation, Vital Signs Vital Signs: Last Vital Signs Temp 97.5 F L 05/17/18 18:06 Pulse 84 05/17/18 18:23 Resp 16 05/17/18 18:06 BP 147/71 05/17/18 18:06 Pulse Ox 99 05/17/18 18:06 - Medical History PMH: Anxiety, Arthritis, CAD, HTN, Hypercholesterolemia, Parkinson's Disease Denies: Chronic Kidney Disease - Family History Family History: States: Unknown Family Hx - Living Arrangements Living Arrangements: With Family - Social History Current smoker - smoking cessation education provided: No Alcohol: None - Home Medications Home Medications: Ambulatory Orders Medication Instructions Recorded Cilostazol [Pletal] 100 mg PO Q12 06/25/17 Furosemide [Lasix] 20 mg PO DAILY 06/25/17 Glimepiride [Amaryl] 1 mg PO DAILY 06/25/17 Lorazepam [Ativan] 0.5 mg PO Q12 06/25/17 Nitroglycerin 0.2 mg/hr [Nitro-Dur 0.2 mg TD DAILY 06/25/17 0.2 mg/hr Patch] Propranolol [Inderal] 20 mg PO Q12 06/25/17 Aspirin [Ecotrin] 81 mg PO DAILY 10/16/17 Pramipexole Di-HCl [Mirapex] 0.25 mg PO Q8 10/16/17 - Allergies Allergies/Adverse Reactions: Allergies Allergy/AdvReac Type Severity Reaction Status Date / Time azithromycin Allergy Mild RASH Verified 05/17/18 20:53 JINA Risk Score for UA/NSTEMI - JINA Risk Score Age > 64: YES 3 or more CAD Risk Factors: YES Known CAD (Stenosis greater than 50%): YES Aspirin use in past 7 days: YES Severe Angina: YES EKG ST changes greater than 0.5mm: NO Positive Cardiac Marker: NO JINA Score: 5 Risk %: 26% Review of Systems Constitutional: Negative for: Fever, Chills Cardiovascular: Positive for: Chest Pain. Negative for: Palpitations Respiratory: Positive for: Shortness of Breath. Negative for: Cough Gastrointestinal: Positive for: Nausea. Negative for: Vomiting, Abdominal Pain, Diarrhea Genitourinary Female: Negative for: Dysuria Musculoskeletal: Negative for: Neck Pain, Back Pain Neurological: Positive for: Dizziness. Negative for: Weakness, Numbness, Incoordination, Change in Speech, Confusion, Seizures, Altered Mental Status, Headache Physical Exam - Reviewed Nursing Documentation Reviewed: Yes Vital Signs Reviewed: Yes - Physical Exam Appears: Positive for: Well, No Acute Distress Head Exam: Positive for: ATRAUMATIC, NORMAL INSPECTION Skin: Positive for: Normal Color, Warm, Dry Eye Exam: Positive for: Normal appearance, EOMI, PERRL Cardiovascular/Chest: Positive for: Regular Rate, Rhythm Respiratory: Positive for: Normal Breath Sounds. 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 - labs - EKG - CXR Disposition - Clinical Impression Clinical Impression: Chest pain - Disposition Disposition: Transfer of Care Disposition Time: 19:00 Condition: STABLE Patient Signed Over To: Silvio Guadarrama
[2018-05-17 18:56] LABS: BASO % 0.5 % (0.0-2.0); EOS # 0.1 K/uL (0.0-0.7); EOS % 2.5 % (0.0-4.0); HEMOGLOBIN 11.5 g/dL (12.0-16.0); LYMPH # 1.1 K/uL (1.0-4.3); LYMPH % 25.7 % (20.0-40.0); MEAN CELL VOLUME 92.1 fl (81.0-99.0); MEAN CORPUSCULAR HEMOGLOBIN 29.9 pg (27.0-31.0); MEAN CORPUSCULAR HGB CONC 32.5 g/dL (33.0-37.0); MEAN PLATELET VOLUME 9.3 fl (7.2-11.7); MONO # 0.2 K/uL (0.0-0.8); MONO % 5.8 % (0.0-10.0); NEUT # 2.8 K/uL (1.8-7.0); NEUT % 65.5 % (50.0-75.0); RBC 3.83 Mil/uL (3.80-5.20); RED CELL DISTRIBUTION WIDTH 14.2 % (11.5-14.5); WHITE BLOOD COUNT 4.3 K/uL (4.8-10.8)
[2018-05-17 18:59] LABS: PARTIAL THROMBOPLASTIN TIME 26.6 Seconds (25.6-37.1)
[2018-05-17 19:05] LABS: BLOOD UREA NITROGEN 15 mg/dl (7-17); CALCIUM 9.4 mg/dL (8.4-10.2); GFR NON-AFRICAN AMERICAN > 60
[2018-05-17 19:23] LABS: ALB/GLOB RATIO 1.3 (1.0-2.1); ALBUMIN 4.1 g/dL (3.5-5.0); ALT/SGPT 22 U/L (9-52); AST/SGOT 37 U/L (14-36)
--- NOTE | 2018-05-17 19:33 | ED PDOC ---
- Laboratory Results Result Diagrams: 05/17/18 18:28 05/17/18 18:28 Lab Results: PT 11.0 Seconds (9.8-13.1) 05/17/18 18: INR 1.0 05/17/18 18: APTT 26.6 Seconds (25.6-37.1) 05/17/18 18: Troponin I 0.0160 ng/mL (0.00-0.120) 05/17/18 18: Total Bilirubin 0.6 mg/dl (0.2-1.3) 05/17/18 18: AST 37 U/L (14-36) H D 05/17/18 18: ALT 22 U/L (9-52) 05/17/18 18: Alkaline Phosphatase 71 U/L (38-126) 05/17/18 18: Total Protein 7.2 G/DL (6.3-8.2) 05/17/18 18: Albumin 4.1 g/dL (3.5-5.0) 05/17/18: Globulin 3.1 gm/dL (2.2-3.9) 05/17/18 18: Albumin/Globulin Ratio 1.3 (1.0-2.1) 05/17/18 18: - ECG O2 Sat by Pulse Oximetry: 99 (RA) Pulse Ox Interpretation: Normal Medical Decision Making Medical Decision Making: Time: 1899 --Patient signed out to this provider by Dr. Turner, pending labs and reevaluation. Time: 2041 --Labs reviewed, no clinically significant abnormalities. Case discussed with Dr. Dasilva who asked patient be place don observation for chest pain. He will evaluate patient tomorrow. Scribe Attestation: Documented by Ann-Marie Wright, acting as a scribe for Silvio Guadarrama MD. Provider Scribe Attestation: All medical record entries made by the Scribe were at my direction and personally dictated by me. I have reviewed the chart and agree that the record accurately reflects my personal performance of the history, physical exam, medical decision making, and the department course for this patient. I have also personally directed, reviewed, and agree with the discharge instructions and disposition. Disposition - Clinical Impression Clinical Impression: Chest pain - POA Present On Arrival: None - Disposition Disposition: Hospitalized as Observation Patient Disposition Time: 20:42 Condition: FAIR
[2018-05-18 00:33] VITALS: RESP 18
[2018-05-18] MEDS ORDERED: GlipiZIDE 2.5 mg SR Tab PO SCH (07:30)
[2018-05-18] MEDS ORDERED: Cilostazol 100 mg Tab UD PO SCH (09:00)
[2018-05-18] MEDS ORDERED: Nitroglycerin 0.2 mg/hr Top Patch TD SCH (09:00)
--- NOTE | 2018-05-18 09:51 | RAD ---
Date of service: 05/17/2018 HISTORY: Chest pain COMPARISON: 02/20/2018 FINDINGS: LUNGS: No active pulmonary disease. PLEURA: No significant pleural effusion identified, no pneumothorax apparent. CARDIOVASCULAR: Mild aortic atherosclerotic calcification present. Normal cardiac size. No pulmonary vascular congestion. OSSEOUS STRUCTURES: No significant abnormalities. VISUALIZED UPPER ABDOMEN: Normal. OTHER FINDINGS: None. IMPRESSION: No active disease.
--- NOTE | 2018-05-18 13:44 | CP.PCM.HP ---
History of Present Illness - History of Present Illness History of Present Illness: This 87-year-old lady who has had critical aortic stenosis for which she has been evaluated at [facility] for TAVR procedure and is awaiting aortic valve replacement for critical aortic stenosis, came into the emergency room after experiencing a sense of lightheadedness and a sense of chest tightness while she was attempting to clean her hallway. She has had a history of stable coronary artery disease and she is a diabetic. She has never been a smoker and has not suffered a myocardial infarction. Physical examination shows an anxious elderly female who is alert awake coherent and afebrile. Her heart rate was 70 bpm regular and her blood pressure was 130/70 mmHg. Her jugular venous pressure was not elevated and there was no edema over the lower extremities. The pedal pulses are feeble but distinctly present. The patient was not palpable the first heart sound was normal the second heart sound was absent. An ejection systolic murmur of aortic gnosis was evident in the left second parasternal area conducted to her carotids. Abdomen was soft and liver and spleen were nonpalpable. Her electrocardiogram showed sinus rhythm with QS pattern in V1 and V2 which was seen on earlier electrocardio grams as well. 3 sets of troponin were negative for any evidence of myocyte injury. The rest of her labs were noted.. Her BUN/creatinine were normal while her potassium was 5.2 mg/L this probably represents hemolysis. I will repeat basic metabolic profile to ensure that the potassium level is normal. Impression: Atypical chest pain with no evidence of acute coronary syndrome. Critical aortic stenosis. Diabetes mellitus. Stable coronary artery disease. Essential tremor. The patient will be sent home and the patient will proceed with the planned aortic valve replacement. Present on Admission - Present on Admission Any Indicators Present on Admission: No Past Patient History - Past Medical History & Family History Past Medical History?: Yes - Past Social History Alcohol: None - CARDIAC Hx Hypercholesterolemia: Yes Hx Hypertension: Yes - PULMONARY Hx Respiratory Disorders: No - NEUROLOGICAL Hx Parkinson's Disease: Yes - HEENT Hx HEENT Problems: No - RENAL Hx Chronic Kidney Disease: No - ENDOCRINE/METABOLIC Hx Endocrine Disorders: Yes Hx Diabetes Mellitus Type 2: Yes - HEMATOLOGICAL/ONCOLOGICAL Hx Blood Disorders: No - INTEGUMENTARY Hx Dermatological Problems: No - MUSCULOSKELETAL/RHEUMATOLOGICAL Hx Arthritis: Yes - GASTROINTESTINAL Hx Gastrointestinal Disorders: No - GENITOURINARY/GYNECOLOGICAL Hx Genitourinary Disorders: No - PSYCHIATRIC Hx Anxiety: Yes - SURGICAL HISTORY Hx Surgeries: Yes Other/Comment: bilateral knee replacement, bladder sx, shoulder sx - ANESTHESIA Hx Anesthesia: Yes Hx Anesthesia Reactions: No Hx Malignant Hyperthermia: No Has any member of the family had a problem w/ anesthesia?: No Meds Allergies/Adverse Reactions: Allergies Allergy/AdvReac Type Severity Reaction Status Date / Time azithromycin Allergy Mild RASH Verified 05/17/18 20:53 Results - Vital Signs Recent Vital Signs: Last Vital Signs Temp 98.3 F 05/18/18 12:01 Pulse 85 05/18/18 12:01 Resp 18 05/18/18 12:01 BP 119/69 05/18/18 12:01 Pulse Ox 94 L 05/18/18 12:01 - Labs Result Diagrams: 05/17/18 18:28 05/17/18 18:28 Labs: Laboratory Results - last 24 hr 05/17/18 05/17/18 05/17/18 18:16 18:28 18:28 WBC 4.3 L RBC 3.83 Hgb 11.5 L Hct 35.3 MCV 92.1 MCH 29.9 MCHC 32.5 L RDW 14.2 Plt Count 157 MPV 9.3 Neut % (Auto) 65.5 Lymph % (Auto) 25.7 [place] % (Auto) 5.8 Eos % (Auto) 2.5 Baso % (Auto) 0.5 Neut # (Auto) 2.8 Lymph # (Auto) 1.1 [place] # (Auto) 0.2 Eos # (Auto) 0.1 Baso # (Auto) 0.0 PT INR APTT Sodium 139 Potassium 5.2 H Chloride 99 Carbon Dioxide 28 Anion Gap 17 BUN 15 Creatinine 0.7 Est GFR ( Amer) > 60 Est GFR (Non-Af Amer) > 60 POC Glucose (mg/dL) 197 H Random Glucose 174 H Calcium 9.4 Total Bilirubin 0.6 AST 37 H D ALT 22 Alkaline Phosphatase 71 Troponin I 0.0160 Total Protein 7.2 Albumin 4.1 Globulin 3.1 Albumin/Globulin Ratio 1.3 05/17/18 05/18/18 05/18/18 18:28 00:25 04:30 WBC RBC Hgb Hct MCV MCH MCHC RDW Plt Count MPV Neut % (Auto) Lymph % (Auto) [place] % (Auto) Eos % (Auto) Baso % (Auto) Neut # (Auto) Lymph # (Auto) [place] # (Auto) Eos # (Auto) Baso # (Auto) PT 11.0 INR 1.0 APTT 26.6 Sodium Potassium Chloride Carbon Dioxide Anion Gap BUN Creatinine Est GFR ( Amer) Est GFR (Non-Af Amer) POC Glucose (mg/dL) Random Glucose Calcium Total Bilirubin AST ALT Alkaline Phosphatase Troponin I 0.0190 0.0300 Total Protein Albumin Globulin Albumin/Globulin Ratio
[2018-05-18 16:13] LABS: BLOOD UREA NITROGEN 13 mg/dl (7-17); CALCIUM 9.3 mg/dL (8.4-10.2); GFR NON-AFRICAN AMERICAN > 60
[2018-05-18 16:27] VITALS: BP 109/66; PULSE 98; TEMP 97.8; O2SAT 96
--- NOTE | 2018-05-18 18:41 | CARD ---
APPROVED REPORT Date of service: 05/17/2018 EKG Measurement Heart [id number] <Conclusion> Sinus rhythm with 1st degree AV block Left anterior fascicular block Left ventricular hypertrophy with repolarization abnormality Cannot rule out Septal infarct, age undetermined Abnormal ECG
== END 2018-05-18 18:03 | disposition home or self-care (01) ==
LOC: H.ER 17:55 → H.ERHOLD 20:37 → H.TEL 22:08
PROVIDERS: ADMIT Internal Medicine Cardiovascular Disease; ATTEND Internal Medicine Cardiovascular Disease
DX: R07.89 Other chest pain (principal); E11.9 Type 2 diabetes mellitus without complications; E78.00 Pure hypercholesterolemia, unspecified; G20 Parkinson's disease; G25.0 Essential tremor; I10 Essential (primary) hypertension; I25.10 Atherosclerotic heart disease of native coronary artery without angina pectoris; I35.0 Nonrheumatic aortic (valve) stenosis; Z79.82 Long term (current) use of aspirin; Z95.2 Presence of prosthetic heart valve; Z96.653 Presence of artificial knee joint, bilateral; F41.9 Anxiety disorder, unspecified; M19.90 Unspecified osteoarthritis, unspecified site; Z79.84 Long term (current) use of oral hypoglycemic drugs; Z79.899 Other long term (current) drug therapy; R42 Dizziness and giddiness
CPT/HCPCS: 36415; 71045; 80048; 80053; 82948; 84484; 85025; 85610; 85730; 93005; 99285; G0378

== ENCOUNTER 2018-07-19 19:29 | Emergency (ER) | payer MEDICARE ==
[2018-07-19 20:54] LABS: VENOUS BLOOD GAS PCO2 57 mmHg (40-60); VENOUS BLOOD GAS PO2 19 mm/Hg (30-55); VENOUS BLOOD PH 7.37 (7.32-7.43)
[2018-07-19 21:14] LABS: BASO % 0.5 % (0.0-2.0); EOS # 0.1 K/uL (0.0-0.7); EOS % 2.7 % (0.0-4.0); HEMOGLOBIN 10.1 g/dL (12.0-16.0); LYMPH # 0.9 K/uL (1.0-4.3); LYMPH % 22.7 % (20.0-40.0); MEAN CELL VOLUME 90.8 fl (81.0-99.0); MEAN CORPUSCULAR HEMOGLOBIN 30.1 pg (27.0-31.0); MEAN CORPUSCULAR HGB CONC 33.1 g/dL (33.0-37.0); MEAN PLATELET VOLUME 8.6 fl (7.2-11.7); MONO # 0.3 K/uL (0.0-0.8); MONO % 6.6 % (0.0-10.0); NEUT # 2.6 K/uL (1.8-7.0); NEUT % 67.5 % (50.0-75.0); NRBC % 0.1 % (0.0-0.0); RBC 3.36 Mil/uL (3.80-5.20); RED CELL DISTRIBUTION WIDTH 14.1 % (11.5-14.5); WHITE BLOOD COUNT 3.9 K/uL (4.8-10.8)
[2018-07-19 21:16] LABS: URINE BILIRUBIN NEGATIVE (NEGATIVE); URINE BLOOD NEGATIVE (NEGATIVE); URINE CLARITY CLEAR (Clear); URINE COLOR YELLOW (YELLOW); URINE GLUCOSE (UA) 50 mg/dL (NEGATIVE); URINE LEUKOCYTE ESTERASE NEG Leu/uL (Negative); URINE PROTEIN NEGATIVE (NEGATIVE); URINE UROBILINOGEN 0.2-1.0 mg/dL (0.2-1.0)
[2018-07-19 21:19] LABS: PROTHROMBIN TIME 11.6 Seconds (9.8-13.1)
[2018-07-19 21:21] LABS: PARTIAL THROMBOPLASTIN TIME 27.2 Seconds (25.6-37.1)
--- NOTE | 2018-07-19 21:21 | ED PDOC ---
HPI: General Adult Time Seen by Provider: 07/19/18 19:48 Chief Complaint (Nursing): Shortness Of Breath Chief Complaint (Provider): Dizziness History Per: Patient History/Exam Limitations: no limitations Onset/Duration Of Symptoms: Hrs (x4) Current Symptoms Are (Timing): Still Present Additional Complaint(s): 87 y/o female, with a past medical history of open heart surgery and HTN, presents with a feeling of sudden onset dizziness at 17:00. Patient states she does not feel like herself and feels off balance. Denies nausea, vomiting, SOB, or chest pain. Patient was recently started on a nitro patch which was removed on arrival to the ED. PMD: Dr. Krishnamurthy Power Crane Operator: Bud Stover V Past Medical History Reviewed: Historical Data, Nursing Documentation, Vital Signs Vital Signs: Last Vital Signs Temp 98.9 F 07/19/18 19:34 Pulse 90 07/19/18 19:34 Resp 18 07/19/18 20:03 BP 134/72 07/19/18 19:34 Pulse Ox 100 07/19/18 19:34 Primary Care Provider: Bud Dasilva V - Medical History PMH: Anxiety, Arthritis, CAD, HTN, Hypercholesterolemia, Parkinson's Disease Denies: Chronic Kidney Disease - Surgical History Other surgeries: Open heart surgery - Family History Family History: States: Unknown Family Hx - Home Medications Home Medications: Ambulatory Orders Medication Instructions Recorded Glimepiride [Amaryl] 1 mg PO DAILY 06/25/17 Lorazepam [Ativan] 0.5 mg PO Q12 06/25/17 Nitroglycerin 0.2 mg/hr [Nitro-Dur 0.2 mg TD DAILY 06/25/17 0.2 mg/hr Patch] Aspirin [Ecotrin] 81 mg PO DAILY 10/16/17 Metoprolol Tartrate [Lopressor] 25 mg PO DAILY 07/19/18 Nitroglycerin [Nitrostat] 0.4 mg SL PRN PRN 07/19/18 Pramipexole Di-HCl [Pramipexole 0.125 mg PO DAILY 07/19/18 Dihydrochloride] hydroCHLOROthiazide [Hydrodiuril] 25 mg PO DAILY 07/19/18 - Allergies Allergies/Adverse Reactions: Allergies Allergy/AdvReac Type Severity Reaction Status Date / Time azithromycin Allergy Mild RASH Verified 05/17/18 20:53 Review of Systems ROS Statement: Except As Marked, All Systems Reviewed And Found Negative Cardiovascular: Negative for: Chest Pain Respiratory: Negative for: Shortness of Breath Gastrointestinal: Negative for: Nausea, Vomiting Neurological: Positive for: Dizziness Physical Exam - Reviewed Nursing Documentation Reviewed: Yes Vital Signs Reviewed: Yes - Physical Exam Appears: Positive for: No Acute Distress Head Exam: Positive for: ATRAUMATIC, NORMOCEPHALIC Eye Exam: Positive for: Other (Pupils pinpoint) Neck: Positive for: Normal, Painless ROM Cardiovascular/Chest: Positive for: Regular Rate, Rhythm Respiratory: Positive for: Normal Breath Sounds. Negative for: Wheezing, Respiratory Distress Extremity: Positive for: Normal ROM Neurological/Psych: Positive for: Awake, Alert, Normal Tone, Oriented, Other (P atient has a tremor when speaking) - Laboratory Results Result Diagrams: 07/19/18 20:40 07/19/18 20:40 Lab Results: pO2 19 mm/Hg (30-55) L 07/19/18 20:52 VBG pH 7.37 (7.32-7.43) 07/19/18 20:52 VBG pCO2 57 mmHg (40-60) 07/19/18 20:52 VBG HCO3 27.7 mmol/L 07/19/18 20:52 VBG Total CO2 34.7 mmol/L (22-28) H 07/19/18 20:52 VBG O2 Sat (Calc) 30.1 % (40-65) L 07/19/18 20:52 VBG Base Excess 6.0 mmol/L (0.0-2.0) H 07/19/18 20:52 VBG Potassium 4.3 mmol/L (3.6-5.2) 07/19/18 20:52 Sodium 138.0 mmol/L (132-148) 07/19/18 20:52 Chloride 104.0 mmol/L (98-107) 07/19/18 20:52 Glucose 140 mg/dL (65-105) H 07/19/18 20:52 Lactate 0.9 mmol/L (0.7-2.1) 07/19/18 20:52 FiO2 21.0 % 07/19/18 20:52 PT 11.6 Seconds (9.8-13.1) 07/19/18 20:40 INR 1.0 07/19/18 20:40 Urine Color Yellow (YELLOW) 07/19/18 20:40 Urine Clarity Clear (Clear) 07/19/18 20:40 Urine pH 7.0 (5.0-8.0) 07/19/18 20:40 Ur Specific [place] 1.018 (1.003-1.030) 07/19/18 20:40 Urine Protein Negative mg/dL (NEGATIVE) 07/19/18 20:40 Urine Glucose (UA) 50 mg/dL (NEGATIVE) 07/19/18 20:40 Urine Ketones Negative mg/dL (NEGATIVE) 07/19/18 20:40 Urine Blood Negative (NEGATIVE) 07/19/18 20:40 Urine Nitrate Negative (NEGATIVE) 07/19/18 20:40 Urine Bilirubin Negative (NEGATIVE) 07/19/18 20:40 Urine Urobilinogen 0.2-1.0 mg/dL (0.2-1.0) 07/19/18 20:40 Ur Leukocyte Esterase Neg Starla/uL (Negative) 07/19/18 20:40 Urine RBC (Auto) 2 /hpf (0-3) 07/19/18 20:40 Urine Microscopic WBC 1 /hpf (0-5) 07/19/18 20:40 - ECG O2 Sat by Pulse Oximetry: 100 (RA) Pulse Ox Interpretation: Normal Medical Decision Making Medical Decision Making: Initial Impression: Workup for altered mental status/feeling unwell. Unable to get a clear description from the patient. Given history of severe cardiac disease, will workup for cardiac neurologic process. Initial Plan: --Type and screen stat --VBG --Head CT --EKG --BNP --CMP --Troponin stat --CBC --PTT --Prothrombin time --Chest X-ray --Urinalysis Will most likely admit for obs. 21:[address] FINDINGS: BRAIN: There is moderate periventricular, deep and subcortical white matter hypodensity bilaterally, compatible with moderate microangiopathy. No CT evidence for acute intracranial hemorrhage. No midline shift or mass effect. VENTRICLES: There is mild prominence of ventricles and sulci compatible with mild atrophy. The ventricles are enlarged slightly out of proportion to the sulci, raising the possibility of normal pressure hydrocephalus. Please correlate clinically. ORBITS: The orbits are unremarkable. SINUSES AND MASTOIDS: The paranasal sinuses and mastoid air cells are clear. BONES: No evidence for displaced calvarial fracture. SOFT TISSUES: Unremarkable. MISCELLANEOUS: No evidence for acute territorial infarction. IMPRESSION: 1. There is mild prominence of ventricles and sulci compatible with mild atrophy. 2. There is moderate periventricular, deep and subcortical white matter hypodensity bilaterally, compatible with moderate microangiopathy. 3. Ventricular prominence is slightly out of proportion to the sulcal prominence, raising the possibility of normal pressure hydrocephalus. Please correlate clinically. 4. Otherwise, no evidence for acute intracranial abnormality. 22:23 Discussed possible admission with hospitalist who states patient does not meet any admission criteria. Discussed with patient's son and patient. Patient reports she is feeling slightly better. Son is concerned because patient lives alone but he lives in the same building as her so he can check on patient in the morning and tonight. Return parameters discussed and patient to follow up with Dr. Krishnamurthy on Saturday. Instructed to leave nitro patch off and discuss medi cations with Dr. Krishnamurthy and Dr. Dasilva. Scribe Attestation: Documented by Magdi Wright acting as a scribe for Cindy Carrillo MD. Provider Scribe Attestation: All medical record entries made by the Scribe were at my direction and personally dictated by me. I have reviewed the chart and agree that the record accurately reflects my personal performance of the history, physical exam, medical decision making, and the department course for this patient. I have also personally directed, reviewed, and agree with the discharge instructions and disposition. Disposition - Clinical Impression Clinical Impression: Episode of generalized weakness - Disposition Referrals: Bud Dasilva MD [Staff Provider] - Royer Krishnamurthy MD [Family Provider] - Disposition Time: 22:23 Condition: IMPROVED Additional Instructions: Follow up with the primary medical doctor and soil technician on Saturday. Do not use nitro patch until cleared by primary medical doctor. Return to the emergency department if symptoms worsen or if new symptoms develop. Instructions: Weakness (ED) Forms: [facility] (Norwegian) Print Language: VENEZUELAN
[2018-07-19 21:25] LABS: ALB/GLOB RATIO 1.6 (1.0-2.1); ALBUMIN 4.2 g/dL (3.5-5.0); ALT/SGPT 29 U/L (9-52); AST/SGOT 32 U/L (14-36); BLOOD UREA NITROGEN 17 mg/dl (7-17); CALCIUM 9.3 mg/dL (8.4-10.2); GFR NON-AFRICAN AMERICAN > 60
[2018-07-19 21:36] LABS: B-TYPE NATRIURETIC PEPTIDE 177 pg/ml (0-900)
[2018-07-19 22:51] VITALS: BP 116/57; PULSE 80; RESP 17; TEMP 98.6
[2018-07-20 05:03] VITALS: O2SAT 100
--- NOTE | 2018-07-20 09:41 | CARD ---
APPROVED REPORT Date of service: 07/19/2018 EKG Measurement Heart [id number] <Conclusion> Sinus rhythm with 1st degree AV block Left axis deviation Left ventricular hypertrophy with repolarization abnormality Anteroseptal infarct, age undetermined Abnormal ECG
--- NOTE | 2018-07-20 17:10 | RAD ---
Date of service: 07/19/2018 HISTORY: possible admission COMPARISON: 05/17/2018 TECHNIQUE: 1 view obtained. FINDINGS: LUNGS: No active pulmonary disease. PLEURA: No significant pleural effusion identified, no pneumothorax apparent. CARDIOVASCULAR: No aortic atherosclerotic calcification present. Normal cardiac size. No pulmonary vascular congestion. OSSEOUS STRUCTURES: No acute fracture. VISUALIZED UPPER ABDOMEN: Normal. OTHER FINDINGS: None. IMPRESSION: No active disease.
--- NOTE | 2018-07-20 17:38 | CT ---
Date of service: 07/19/2018 PROCEDURE: CT HEAD WITHOUT CONTRAST. HISTORY: dizziness COMPARISON: 10/16/2017 TECHNIQUE: Axial computed tomography images were obtained through the head/brain without intravenous contrast. Radiation dose: Total exam DLP = 697.81 mGy-cm. This CT exam was performed using one or more of the following dose reduction techniques: Automated exposure control, adjustment of the mA and/or kV according to patient size, and/or use of iterative reconstruction technique. FINDINGS: HEMORRHAGE: No intracranial hemorrhage. BRAIN: No mass effect or edema. Mild diffuse atrophy consistent with patient age. Moderate patchy and confluent periventricular and deep white matter lucency consistent with microvascular white matter ischemic change. No evidence of acute infarct. VENTRICLES: Unremarkable. No hydrocephalus. CALVARIUM: Unremarkable. PARANASAL SINUSES: Unremarkable as visualized. No significant inflammatory changes. MASTOID AIR CELLS: Unremarkable as visualized. No inflammatory changes. OTHER FINDINGS: None. IMPRESSION: No intracranial mass, hemorrhage or evidence of acute infarct. Moderate chronic white matter ischemic change and mild diffuse atrophy. The preliminary findings for this examination were reported by [facility] at 9:38 p.m. on 07/19/2018.. There is concurrence of this report with the preliminary findings.
== END 2018-07-19 22:45 | disposition home or self-care (01) ==
LOC: H.ER 19:29
DX: M62.81 Muscle weakness (generalized) (principal); E78.00 Pure hypercholesterolemia, unspecified; G20 Parkinson's disease; I10 Essential (primary) hypertension; I25.10 Atherosclerotic heart disease of native coronary artery without angina pectoris; Z79.84 Long term (current) use of oral hypoglycemic drugs